=== PATIENT | male | born 1955 | race Caucasian/White ===

== ENCOUNTER 2016-09-27 13:49 | Emergency (ER) | payer OTHER ==
--- NOTE | ~2016-09-27 | CR126 ---
[facility] A Service of [facility] & [facility] RADIOLOGY TEXT RESULTS PATIENT: ANGY KING LOCATION: [facility]FT[facility] : 53 UNIT #: [id number] AGE: [address]: Leanna Khan APRN SEX: M ORDER DR: [id number] [facility] [address] [place], [place] [address] [id number] E MR#: [id number] Acc #: [id number] NAME: ANGY KING : 1955 SEX: M STUDY DATE/TIME: 09/27/2016 13:58 UNIT: CFTX ROOM: STUDY DESCRIPTION: CR Foot Complete Min 3 View Lt Attending Physician: Leanna Khan A.P.R.N. Ordering Physician: [facility] Primary Care Physician: No Primary Care Physician MEDICAL IMAGING REPORT This report is preliminary unless electronic signature is present EXAM Left foot 09/27/2016 HISTORY Foot pain. Patient fell at work earlier today. TECHNIQUE 3 views of the foot were obtained. FINDINGS The tarsal, metatarsal, and phalangeal elements are all anatomically normal in position and alignment. There are no articular defects. No fractures or radiopaque foreign bodies in the soft tissues are apparent. IMPRESSION Normal foot. Dictated by... Gene Marquez M.D. THIS IS AN ELECTRONICALLY VERIFIED REPORT Gene Marquez M.D. at 09/29/2016 9:39 PM MALENA/cathryn TD: 09/27/2016 18:11 JOB #: [id number] MEDICAL IMAGING REPORT COPY
--- NOTE | ~2016-09-27 | CR20 ---
[facility] A Service of [facility] RADIOLOGY TEXT RESULTS PATIENT: ANGY KING LOCATION: [facility] : 53 UNIT #: [id number] AGE: [address]: Leanna Khan APRN SEX: M ORDER DR: [id number] [facility] [address] [place], [place] [address] [id number] E MR#: [id number] Acc #: [id number] NAME: ANGY KING : 1955 SEX: M STUDY DATE/TIME: 09/27/2016 13:57 UNIT: [facility]NC ROOM: STUDY DESCRIPTION: CR Ankle Min 3 Views Lt Attending Physician: Leanna Khan A.P.R.N. Referring Physician: Larry Gomez M.D. Ordering Physician: Andrez Rodgers M.D. Primary Care Physician: No Primary Care Physician MEDICAL IMAGING REPORT This report is preliminary unless electronic signature is present EXAM Left ankle. DATE OF EXAM 09/27/2016 HISTORY Ankle pain after falling earlier today. TECHNIQUE 3 views of the ankle were obtained. FINDINGS AP, lateral, and oblique projections of the ankle show satisfactory integrity of the joint mortise with a smooth articular surface. There is no identifiable fracture, dislocation, or radiopaque foreign body. IMPRESSION Normal ankle series. Dictated by... Gene Marquez M.D. THIS IS AN ELECTRONICALLY VERIFIED REPORT Gene Marquez M.D. at 09/29/2016 9:39 PM RLF/jolga TD: 09/27/2016 18:15 JOB #: [id number] [facility] A Service [facility] RADIOLOGY TEXT RESULTS PATIENT: ANGY KING LOCATION: [facility] : 53 UNIT #: [id number] AGE: [address]: Leanna Khan APRN SEX: M ORDER DR: MEDICAL IMAGING REPORT COPY
[~2016-09-27 13:49] MED LIST: FLOMAX0.4 M1 PO; FOLIC ACID1 MG PO; IBUPROFEN PO; LISINOPRIL10 MG PO; MULTI VITAMIN1 EACH PO; NO MEDICATIONS; OMEPRAZOLE40 MG PO; SUPRAX400 MG PO; THIAMINE HCL100 MG PO; VICODIN 5/500 T1 TAB PO
== END 2016-09-27 15:06 | disposition home or self-care (01) ==
LOC: CFTX 13:49
DX: S93.402A Sprain of unspecified ligament of left ankle, initial encounter (principal); S93.602A Unspecified sprain of left foot, initial encounter; Y99.0 Civilian activity done for income or pay; I10 Essential (primary) hypertension; K21.9 Gastro-esophageal reflux disease without esophagitis; Z88.5 Allergy status to narcotic agent; Z79.899 Other long term (current) drug therapy; W01.0XXA Fall on same level from slipping, tripping and stumbling without subsequent striking against object, initial encounter; Y93.89 Activity, other specified; Y92.69 Other specified industrial and construction area as the place of occurrence of the external cause
CPT/HCPCS: 29540; 73610; 73630; 99283